=== PATIENT | male | born 1990 | race African-American/Black ===

== ENCOUNTER 2018-09-15 20:40 | Emergency (ER) | payer MEDICAID ==
[2018-09-15] MEDS ORDERED: MORPHINE SULFATE 10 MG/ML INJ IV ONE (21:27)
--- NOTE | 2018-09-15 21:28 | ER Document Report ---
ED Medical Screen (RME) - General Chief Complaint: Possible Kidney Stone Stated Complaint: FLANK PAIN Time Seen by Provider: 09/15/18 21:25 Notes: Patient is a 28-year-old male who presents emergency department with a chief complaint of right lateral abdominal pain. His pain started at 1800 this evening. He was brought in by ambulance and given Toradol and Zofran. He states that it has not gotten any better. He states that he has history of kidney stones in the past and this feels just like the kidney stones he has had. Denies any other past medical history. Exam: Tenderness noted to right lateral abdomen. I have greeted and performed a rapid initial assessment of this patient. A comprehensive ED assessment and evaluation of the patient, analysis of test results and completion of medical decision making process will be conducted by an additional ED providers. TRAVEL OUTSIDE OF THE [place] IN LAST 30 DAYS: No Past Medical History - Social History Frequency of alcohol use: None Drug Abuse: None Renal/ Medical History: Reports: Hx Kidney Stones. Denies: Hx Peritoneal Dialysis Physical Exam - Vital signs Vitals: Temp Pulse Resp BP Pulse Ox 97.5 F 56 L 16 155/98 H 97 09/15/18 20:48 09/15/18 20:48 09/15/18 20:48 09/15/18 20:48 09/15/18 20:48 Course - Vital Signs Vital signs: Temp Pulse Resp BP Pulse Ox 97.5 F 56 L 16 155/98 H 97 09/15/18 20:48 09/15/18 20:48 09/15/18 20:48 09/15/18 20:48 09/15/18 20:48
[2018-09-15 21:54] LABS: ABSOLUTE EOSINOPHILS # (AUTO) 0.1 10^3/uL (0.0-0.6); ABSOLUTE LYMPHOCYTES (AUTO) 1.7 10^3/uL (0.5-4.7); ABSOLUTE MONOCYTES (AUTO) 0.6 10^3/uL (0.1-1.4); ABSOLUTE NEUT (AUTO) 10.1 10^3/uL (1.7-8.2); BASOPHILS % (AUTO) 0.3 % (0-2); EOSINOPHILS % (AUTO) 0.7 % (0-6); HEMATOCRIT 45.4 % (37.9-51.0); HEMOGLOBIN 15.5 g/dL (13.5-17.0); LYMPHOCYTES % (AUTO) 13.2 % (13-45); MEAN CORPUSCULAR HEMOGLOBIN 33.2 pg (27.0-33.4); MEAN CORPUSCULAR HGB CONC 34.2 g/dL (32.0-36.0); MEAN CORPUSCULAR VOLUME 97 fl (80-97); MONOCYTES % (AUTO) 5.1 % (3-13); PLATELET COUNT 332 10^3/uL (150-450); RED BLOOD COUNT 4.68 10^6/uL (4.35-5.55); RED CELL DISTRIBUTION WIDTH 13.4 % (11.5-14.0); SEGMENTED NEUTROPHILS % (AUTO) 80.7 % (42-78); TOTAL CELLS COUNTED % (AUTO) 100 %; WHITE BLOOD COUNT 12.6 10^3/uL (4.0-10.5)
[2018-09-15 22:13] LABS: ALANINE AMINOTRANSFERASE 43 U/L (21-72); ALBUMIN 4.1 g/dL (3.5-5.0); ALKALINE PHOSPHATASE 75 U/L (38-126); ANION GAP 5 (5-19); ASPARTATE AMINO TRANSFERASE 28 U/L (17-59); BILIRUBIN,DIRECT 0.3 mg/dL (0.0-0.4); BILIRUBIN,TOTAL 0.5 mg/dL (0.2-1.3); BLOOD UREA NITROGEN 12 mg/dL (7-20); CALCIUM 9.7 mg/dL (8.4-10.2); CARBON DIOXIDE 27 mmol/L (22-30); CHLORIDE 108 mmol/L (98-107); GLUCOSE 108 mg/dL (75-110); POTASSIUM 4.2 mmol/L (3.6-5.0); SODIUM 139.9 mmol/L (137-145); TOTAL PROTEIN 6.8 g/dL (6.3-8.2)
--- NOTE | 2018-09-15 22:22 | RADIOLOGY REPORT (SQ) ---
EXAM DESCRIPTION: US RETROPERITONEUM LIMITED COMPLETED DATE/TME: 09/15/2018 21:27 CLINICAL HISTORY: 28 years, Male, Eval stone Comparison: None Grayscale and Doppler sonogram of the abdomen. FINDINGS: Right kidney: 11.7 cm. No hydronephrosis. No nephrolithiasis. Left kidney: 11.8 cm. No hydronephrosis. No nephrolithiasis. Urinary bladder: Ureteral jets not visualized otherwise, normal in appearance. IMPRESSION: No acute sonographic abnormality.
[2018-09-16] MEDS ORDERED: HYDROCODONE/ACETAMINOPHEN 5-325 MG (6 TAB/ER DISP) PO PRN (00:01)
[2018-09-16] MEDS ORDERED: ONDANSETRON ODT 4 MG TAB (6 TAB/ER DISP) PO PRN (00:02)
--- NOTE | 2018-09-16 00:03 | ER Document Report ---
ED General - General Chief Complaint: Possible Kidney Stone Stated Complaint: FLANK PAIN Time Seen by Provider: 09/15/18 21:25 Mode of Arrival: Medic Information source: Patient, Relative, Emergency Med Personnel Notes: 28-year-old male with history of kidney stones presents with right mid abdominal pain and right flank pain that occurred just prior to arrival at 6:30 PM. Patient described the pain as sharp, constant and associated with nausea and multiple episodes of vomiting. Patient denies any fever, chills, dysuria, hematuria, upper abdominal pain, chest pain, penile discharge. Patient's last kidney stone was approximately 2 years ago. He states he was able to pass it on his own. Patient did receive morphine, Toradol and Zofran prior to my exam and reports complete resolution of his pain and nausea. TRAVEL OUTSIDE OF THE [place] IN LAST 30 DAYS: No - HPI Onset: Just prior to arrival Onset/Duration: Sudden, Better Quality of pain: Sharp Severity: Moderate Pain Level: 2 Associated symptoms: Nausea, Vomiting. denies: Chest pain, Diarrhea, Fever, Shortness of breath, Weakness Exacerbated by: Denies Relieved by: Denies Similar symptoms previously: Yes Recently seen / treated by doctor: No - Related Data Allergies/Adverse Reactions: No Known Allergies Allergy (Unverified 09/15/18 23:57) Past Medical History - General Information source: Patient - Social History Smoking Status: Current Every Day Smoker Cigarette use (# per day): Yes - 10 Smoking Education Provided: Yes - Smoking cessation counseling was provided for 4 minutes at the bedside Frequency of alcohol use: None Drug Abuse: None Lives with: Spouse/Significant other Family History: Reviewed & Not Pertinent Patient has suicidal ideation: No Patient has homicidal ideation: No Renal/ Medical History: Reports: Hx Kidney Stones. Denies: Hx Peritoneal Dialysis Review of Systems - Review of Systems Notes: REVIEW OF SYSTEMS: CONSTITUTIONAL : Denies fever, chills, or sweats. Denies recent illness. Denies weight loss, recent hospitalizations. EENT: Denies visual changes, eye pain. Denies sore throat, oral lesions, difficulty swallowing. CARDIOVASCULAR: Denies chest pain. Denies palpitations. Denies lower extremity edema. RESPIRATORY: Denies cough. Denies shortness of breath, wheezing. GASTROINTESTINAL: + abdominal pain denies distention. + nausea, vomiting, denies diarrhea. Denies blood in vomitus, stools, or per rectum. Denies black, tarry stools. Denies constipation. GENITOURINARY: Denies difficulty urinating, painful urination, frequency, bloo d in urine, testicular pain or penile discharge. MUSCULOSKELETAL: Denies back or neck pain or stiffness. Denies joint pain or swelling. SKIN: Denies rash, lesions or sores. HEMATOLOGIC : Denies easy bruising or bleeding. LYMPHATIC: Denies swollen glands. NEUROLOGICAL: Denies confusion or altered mental status. Denies loss of consciousness. Denies dizziness or lightheadedness. Denies headache. Denies weakness or paralysis. Denies problems difficulty with ambulation, slurred speech. Denies sensory loss, numbness, or tingling. Denies seizures. PSYCHIATRIC: Denies anxiety or stress. Denies depression, suicidal ideation, or Physical Exam - Vital signs Vitals: Temp Pulse Resp BP Pulse Ox 97.5 F 56 L 16 155/98 H 97 09/15/18 20:48 09/15/18 20:48 09/15/18 20:48 09/15/18 20:48 09/15/18 20:48 - Notes Notes: PHYSICAL EXAMINATION: GENERAL: Well-appearing, well-nourished and in no acute distress. HEAD: Atraumatic, normocephalic. EYES: Pupils equal round and reactive to light, extraocular movements intact, sclera anicteric, conjunctiva are normal. ENT: Nares patent, oropharynx clear without exudates. Moist mucous membranes. NECK: Normal range of motion, supple without lymphadenopathy LUNGS: Breath sounds clear to auscultation bilaterally and equal. No wheezes rales or rhonchi. HEART: Regular rate and rhythm without murmurs ABDOMEN: Soft, nontender, nondistended abdomen. No guarding, no rebound. No masses appreciated. Musculoskeletal: Normal range of motion, no pitting or edema. No cyanosis. NEUROLOGICAL: Cranial nerves grossly intact. Normal speech, normal gait. Normal sensory, motor exams PSYCH: Normal mood, normal affect. SKIN: Warm, Dry, normal turgor, no rashes or lesions noted. Course - Re-evaluation Re-evalutation: 09/15/18 23:59 Laboratory 09/15/18 09/15/18 21:30 21:30 WBC 12.6 H RBC 4.68 Hgb 15.5 Hct 45.4 MCV 97 MCH 33.2 MCHC 34.2 RDW 13.4 Plt Count 332 Seg Neutrophils % 80.7 H Lymphocytes % 13.2 Monocytes % 5.1 Eosinophils % 0.7 Basophils % 0.3 Absolute Neutrophils 10.1 H Absolute Lymphocytes 1.7 Absolute Monocytes 0.6 Absolute Eosinophils 0.1 Absolute Basophils 0.0 Sodium 139.9 Potassium 4.2 Chloride 108 H Carbon Dioxide 27 Anion Gap 5 BUN 12 Creatinine 1.20 Est GFR ( Amer) > 60 Est GFR (Non-Af Amer) > 60 Glucose 108 Calcium 9.7 Total Bilirubin 0.5 Direct Bilirubin 0.3 Neonat Total Bilirubin Not Reportable Neonat Direct Bilirubin Not Reportable Neonat Indirect Bili Not Reportable AST 28 ALT 43 Alkaline Phosphatase 75 Total Protein 6.8 Albumin 4.1 Renal Ultrasound 09/15/18 21:27 IMPRESSION: No acute sonographic abnormality. Temp Pulse Resp BP Pulse Ox 97.5 F 56 L 16 155/98 H 97 09/15/18 20:48 09/15/18 20:48 09/15/18 20:48 09/15/18 20:48 09/15/18 20:48 Presents with findings consistent with acute nephrolithiasis. Urinalysis does show hematuria. Laboratory otherwise unremarkable. Pain was able to be controlled here in the emergency department. Patient is tolerating oral intake. Clinical history is not consistent with an acute abdominal aneurysm or dissection, NH, or pulmonary embolus. Urinalysis does not show findings consistent with an infected stone. Vitals have remained within normal limits. Patient will be discharged with recommendations to follow-up with urology, pain medications, and return precautions. They are in agreement with this plan and verbalized indications return to emergency department. - Vital Signs Vital signs: Temp Pulse Resp BP Pulse Ox 97.5 F 56 L 16 155/98 H 97 09/15/18 20:48 09/15/18 20:48 09/15/18 20:48 09/15/18 20:48 09/15/18 20:48 - Laboratory Result Diagrams: 09/15/18 21:30 09/15/18 21:30 Laboratory results interpreted by me: 09/15/18 09/15/18 09/16/18 21:30 21:30 00:50 WBC 12.6 H Seg Neutrophils % 80.7 H Absolute Neutrophils 10.1 H Chloride 108 H Urine Protein 30 H Urine Ketones TRACE H Urine Blood LARGE H Urine Urobilinogen 4.0 H - Diagnostic Test Radiology reviewed: Image reviewed, Reports reviewed Discharge - Discharge Clinical Impression: Kidney stone, Right lower quadrant abdominal pain Hematuria Qualifiers: Hematuria type: unspecified type Qualified Code(s): R31.9 - Hematuria, unspecified Condition: Good Disposition: HOME, SELF-CARE Instructions: Abdominal Pain ([facility]), Kidney Stone ([facility]), Observation for Appendicitis ([facility]), Toradol Injection ([facility]) Additional Instructions: Your symptoms should improve over the course of the next one week. If you continue to have pain for greater than one week or your pain is not controlled with the pain medications that you have been sent home with you need to return to the emergency department. Please also return if you develop fever, persistent vomiting, or any other symptoms that are concerning to you. You should take ibuprofen 600 mg every 6 hours and use the oral morphine as prescribed only for pain not controlled by ibuprofen. You are also been sent home with a medication called Flomax to help pass the stone. You've been given Zofran to assist with nausea. Please follow-up with urology in the next 2-3 days. Prescriptions: Ibuprofen [Motrin 600 Mg Tablet] 600 mg PO TID #15 tablet Tamsulosin HCl [Flomax 0.4 mg Cap.sr] 0.4 mg PO DAILY #7 cap.sr.24h
[2018-09-16 01:41] LABS: APPEARANCE,URINE SLIGHTLY-CLOUDY; BILIRUBIN,URINE NEGATIVE (NEGATIVE); COLOR,URINE YELLOW; GLUCOSE, URINE NEGATIVE (NEGATIVE); KETONES,URINE TRACE mg/dL (NEGATIVE); LEUKOCYTE ESTERASE,URINE NEGATIVE (NEGATIVE); NITRITE,URINE NEGATIVE (NEGATIVE); PROTEIN,URINE 30 mg/dL (NEGATIVE); URINE SPECIFIC GRAVITY 1.023
[2018-09-16 02:17] VITALS: BP 156/99
== END 2018-09-16 02:17 | disposition home or self-care (01) ==
LOC: ER 20:40
DX: N20.0 Calculus of kidney (principal); R10.31 Right lower quadrant pain; R31.9 Hematuria, unspecified; R10.9 Unspecified abdominal pain; R11.2 Nausea with vomiting, unspecified; F17.210 Nicotine dependence, cigarettes, uncomplicated
CPT/HCPCS: 99406; 99284; 36415; 85025; 80053; 81001; 76775; J2270